=== PATIENT | female | born 1975 | race Caucasian/White ===

== ENCOUNTER 2016-10-25 22:41 | Emergency (ER) | payer SELFPAY ==
[~2016-10-25] VITALS: Ht 167.6 cm; Wt 45.4 kg
[2016-10-25 23:03] LABS: BASOPHILS % (AUTO) 0 % (0-10); EOSINOPHILS % (AUTO) 1 % (0-10); LYMPHOCYTES # (AUTO) 1.5 X 10^3 (1.0-4.0); LYMPHOCYTES % (AUTO) 24 % (12-44); MEAN CORPUSCULAR HEMOGLOBIN 31 PG (25-34); MEAN CORPUSCULAR HGB CONC 35 G/DL (32-36); MEAN CORPUSCULAR VOLUME 87 FL (80-99); MEAN PLATELET VOLUME 10.6 FL (7.4-10.4); MONOCYTES # (AUTO) 0.3 X 10^3 (0.0-1.0); MONOCYTES % (AUTO) 5 % (0-12); NEUTROPHILS # (AUTO) 4.3 X 10^3 (1.8-7.8); NEUTROPHILS % (AUTO) 71 % (42-75); PLATELET COUNT 226 10^3/uL (130-400); RED BLOOD COUNT 4.59 10^6/uL (4.35-5.85); RED CELL DISTRIBUTION WIDTH 12.3 % (10.0-14.5)
[2016-10-25 23:14] LABS: BILIRUBIN,URINE NEGATIVE (NEGATIVE); KETONES,URINE NEGATIVE (NEGATIVE); LEUKOCYTE ESTERASE ,URINE NEGATIVE (NEGATIVE); NITRITE,URINE NEGATIVE (NEGATIVE); PH,URINE 6 (5-9); PROTEIN,URINE NEGATIVE (NEGATIVE); SQUAMOUS EPITHELIAL CELL,UR RARE /HPF; UROBILINOGEN,URINE NORMAL (NORMAL)
[2016-10-25 23:23] LABS: ALANINE AMINOTRANSFERASE 9 U/L (0-55); ALBUMIN 4.1 G/DL (3.2-4.5); ALCOHOL 156 MG/DL (<10); ANION GAP 13 MMOL/L (5-14); ASPARTATE AMINO TRANSFERASE 19 U/L (5-34); BILIRUBIN,TOTAL 0.4 MG/DL (0.1-1.0); BLOOD UREA NITROGEN 11 MG/DL (7-18); BUN/CREATININE RATIO 16; CALCIUM 8.7 MG/DL (8.5-10.1); CARBON DIOXIDE 22 MMOL/L (21-32); CHLORIDE 106 MMOL/L (98-107); GFR ESTIMATED > 60; GLUCOSE 107 MG/DL (70-105); SODIUM 141 MMOL/L (135-145); TOTAL PROTEIN 7.1 G/DL (6.4-8.2)
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
[2016-10-26] MEDS ORDERED: ONDANSETRON 4 MG (ZOFRAN) ORAL DISSOLVE TAB PO ONE (01:45)
[2016-10-26 02:30] VITALS: BP 110/81
--- NOTE | 2016-10-26 08:07 | Diagnostic Imaging Report ---
PROCEDURE: CT head without contrast. TECHNIQUE: Multiple contiguous axial images were obtained through the brain without the use of intravenous contrast. INDICATION: Altered mental status . FINDINGS: There is some motion artifact which could obscure of particularly subtle abnormality. The scan was repeated. There is no intracranial hemorrhage, edema or mass effect. The brain parenchyma appears unremarkable. No hydrocephalus. The visualized portions of the orbits and paranasal sinuses appear unremarkable. IMPRESSION: No definite abnormality Dictated by: Dictated on workstation # [id number]
== END 2016-10-26 02:30 | disposition home or self-care (01) ==
LOC: EDBD → ER 22:42
DX: R41.3 Other amnesia (principal); R10.30 Lower abdominal pain, unspecified; F10.129 Alcohol abuse with intoxication, unspecified; Y90.6 Blood alcohol level of 120-199 mg/100 ml; S50.812A Abrasion of left forearm, initial encounter; Y04.8XXA Assault by other bodily force, initial encounter; Y92.009 Unspecified place in unspecified non-institutional (private) residence as the place of occurrence of the external cause; Y99.8 Other external cause status
CPT/HCPCS: 36415; 70450; 80053; 80306; 80320; 81000; 84703; 85025

== ENCOUNTER → 2016-10-25 | Outpatient (CLI) | payer OTHER ==
[~2016-10-25] MED LIST: Flexeril PO
--- NOTE | 2016-11-03 02:07 | Forensic Nursing Medical Dir ---
Forensic Nursing Note creative/art director chart review complete MELISSA JASSO MD Nov 03, 2016 02:07
== END ==
LOC: EDBD → FNS 23:40
PROVIDERS: ATTEND Emergency Medicine
DX: Z02.89 Encounter for other administrative examinations (principal)

== ENCOUNTER 2016-11-10 18:02 | Emergency (ER) | payer SELFPAY ==
[~2016-11-10] VITALS: Ht 170.2 cm; Wt 61.2 kg
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
[2016-11-10 18:36] LABS: BASOPHILS % (AUTO) 0 % (0-10); EOSINOPHILS # (AUTO) 0.1 10^3/uL (0.0-0.3); EOSINOPHILS % (AUTO) 1 % (0-10); LYMPHOCYTES # (AUTO) 1.9 X 10^3 (1.0-4.0); LYMPHOCYTES % (AUTO) 19 % (12-44); MEAN CORPUSCULAR HEMOGLOBIN 31 PG (25-34); MEAN CORPUSCULAR HGB CONC 35 G/DL (32-36); MEAN CORPUSCULAR VOLUME 88 FL (80-99); MEAN PLATELET VOLUME 10.1 FL (7.4-10.4); MONOCYTES # (AUTO) 0.6 X 10^3 (0.0-1.0); MONOCYTES % (AUTO) 6 % (0-12); NEUTROPHILS # (AUTO) 7.5 X 10^3 (1.8-7.8); NEUTROPHILS % (AUTO) 75 % (42-75); PLATELET COUNT 205 10^3/uL (130-400); RED BLOOD COUNT 4.75 10^6/uL (4.35-5.85); RED CELL DISTRIBUTION WIDTH 12.1 % (10.0-14.5)
[2016-11-10 18:53] LABS: ALANINE AMINOTRANSFERASE 17 U/L (0-55); ALBUMIN 4.3 G/DL (3.2-4.5); ANION GAP 14 MMOL/L (5-14); ASPARTATE AMINO TRANSFERASE 24 U/L (5-34); BILIRUBIN,TOTAL 0.4 MG/DL (0.1-1.0); BLOOD UREA NITROGEN 16 MG/DL (7-18); BUN/CREATININE RATIO 23; CARBON DIOXIDE 21 MMOL/L (21-32); CHLORIDE 104 MMOL/L (98-107); GFR ESTIMATED > 60; GLUCOSE 87 MG/DL (70-105); POTASSIUM 3.5 MMOL/L (3.6-5.0); SODIUM 139 MMOL/L (135-145)
[2016-11-10 18:54] LABS: ALCOHOL < 10 MG/DL (<10)
[2016-11-10] MEDS ORDERED: IOHEXOL 350 MG/ML 100 ML (OMNIPAQUE 350) VIAL IV ONE (19:00)
[2016-11-10] MEDS ORDERED: NS 100 ML (IVPB) BAG IV ONE (19:00)
[2016-11-10 19:13] LABS: BILIRUBIN,URINE NEGATIVE (NEGATIVE); KETONES,URINE NEGATIVE (NEGATIVE); LEUKOCYTE ESTERASE ,URINE NEGATIVE (NEGATIVE); NITRITE,URINE NEGATIVE (NEGATIVE); PH,URINE 5 (5-9); PROTEIN,URINE NEGATIVE (NEGATIVE); UROBILINOGEN,URINE NORMAL (NORMAL)
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
[2016-11-10] MEDS ORDERED: Flexeril PO (19:42)
[2016-11-10] MEDS ORDERED: ACETAMINOPHEN 500 MG TAB (TYLENOL) PO ONE (19:45)
[2016-11-10] MEDS ORDERED: CYCLOBENZAPRINE 10 MG (FLEXERIL) TAB PO SCH (19:45)
[2016-11-10 19:51] VITALS: BP 109/78
== END 2016-11-10 19:51 | disposition home or self-care (01) ==
LOC: EDUNIT# 18:02 → ER 18:03
DX: S39.012A Strain of muscle, fascia and tendon of lower back, initial encounter (principal); K57.30 Diverticulosis of large intestine without perforation or abscess without bleeding; J34.1 Cyst and mucocele of nose and nasal sinus; V28.1XXA Motorcycle passenger injured in noncollision transport accident in nontraffic accident, initial encounter; Y92.410 Unspecified street and highway as the place of occurrence of the external cause; Y99.8 Other external cause status
CPT/HCPCS: 36415; 70450; 71010; 72125; 72128; 72131; 72170; 74177; 80053; 80306; 80320; 81000; 85025; 99285

== ENCOUNTER 2017-01-19 11:52 | Emergency (ER) | payer SELFPAY ==
[~2017-01-19] VITALS: Ht 170.2 cm; Wt 61.2 kg
--- NOTE | 2017-01-19 12:09 | ED General ---
General Chief Complaint: General Problems/Pain Stated Complaint: MEDICAL CLEARANCE Source of Information: Patient, Caregiver Exam Limitations: No Limitations History of Present Illness Time Seen by Provider: 12:08 Initial Comments Brought to ER by [facility] with reports of needing medical clearance. Patient has been suicidal for many months and Rajinder orellana from [facility] visited with her today. He is arranged placement for her at [facility] in [facility]. However, prior to admissions there she needs medical clearance. Patient states that she is suicidal but does not voice a specific plan to me. Timing/Duration: Getting Worse, Intermittent Severity: Moderate Allergies and Home Medications Allergies Coded Allergies: ibuprofen (Verified Allergy, Mild, 11/10/16) Home Medications [Flexeril] , 5 MG PO TID PRN for PAIN, #20 Prescribed by: BETINA PARKER on 11/10/161941 Constitutional: see HPI EENTM: see HPI Respiratory: no symptoms reported Cardiovascular: no symptoms reported Genitourinary: no symptoms reported Musculoskeletal: no symptoms reported Skin: no symptoms reported Psychiatric/Neurological: See HPI, Anxiety, Depressed Hematologic/Lymphatic: No Symptoms Reported Past Bxyetpj-Jxmoem-Dwutmm Hx Patient Social History Recent Foreign Travel: No Contact w/Someone Who Travel: No Immunizations Up To Date Tetanus Booster (TDap): Less than 5yrs Surgeries HX Surgeries: Yes (hysterectomy) Physical Exam Vital Signs Vital Sign - Last 12Hours 01/19/17 12:04 Temp 97.2 Pulse 89 Resp 18 B/P (MAP) 112/96 Pulse Ox 99 O2 Delivery Room Air Capillary Refill : General Appearance: No Apparent Distress, WD/WN Eyes: Bilateral Eye EOMI, Bilateral Eye Normal Inspection, Bilateral Eye PERRL HEENT: PERRL/EOMI, TMs Normal Neck: Full Range of Motion, Normal Inspection Respiratory: No Accessory Muscle Use, No Respiratory Distress Cardiovascular: Regular Rate, Rhythm, Normal Peripheral Pulses Gastrointestinal: Normal Bowel Sounds, Non Tender, Soft Extremity: Normal Capillary Refill, Normal Inspection Neurologic/Psychiatric: Alert, Oriented x3, No Motor/Sensory Deficits, Other ( cooperative, pleasant) Skin: Normal Color, Warm/Dry Progress/Results/Core Measures Results/Orders Lab Results Laboratory Tests Test 01/19/17 12:10 Range/Units White Blood Count 7.3 4.3-11.0 10^3/uL Red Blood Count 4.76 4.35-5.85 10^6/uL Hemoglobin 14.6 11.5-16.0 G/DL Hematocrit 42 35-52 % Mean Corpuscular Volume 88 80-99 FL Mean Corpuscular Hemoglobin 31 25-34 PG Mean Corpuscular Hemoglobin Concent 35 32-36 G/DL Red Cell Distribution Width 11.9 10.0-14.5 % Platelet Count 239 130-400 10^3/uL Mean Platelet Volume 10.6 H 7.4-10.4 FL Neutrophils (%) (Auto) 69 42-75 % Lymphocytes (%) (Auto) 24 12-44 % Monocytes (%) (Auto) 7 0-12 % Eosinophils (%) (Auto) 0 0-10 % Basophils (%) (Auto) 0 0-10 % Neutrophils # (Auto) 5.0 1.8-7.8 X 10^3 Lymphocytes # (Auto) 1.8 1.0-4.0 X 10^3 Monocytes # (Auto) 0.5 0.0-1.0 X 10^3 Eosinophils # (Auto) 0.0 0.0-0.3 10^3/uL Basophils # (Auto) 0.0 0.0-0.1 10^3/uL Urine Color YELLOW Urine Clarity SLIGHTLY CLOUDY Urine pH 5 5-9 Urine Specific [place] 1.030 H 1.016-1.022 Urine Protein 2+ H NEGATIVE Urine Glucose (UA) NEGATIVE NEGATIVE Urine Ketones 1+ H NEGATIVE Urine Nitrite NEGATIVE NEGATIVE Urine Bilirubin NEGATIVE NEGATIVE Urine Urobilinogen NORMAL NORMAL MG/DL Urine Leukocyte Esterase 1+ H NEGATIVE Urine RBC (Auto) NEGATIVE NEGATIVE Urine RBC NONE /HPF Urine WBC 2-5 /HPF Urine Squamous Epithelial Cells 5-10 /HPF Urine Crystals PRESENT H /LPF Urine Amorphous Sediment RARE ALTAGRACIA URATES H /LPF Urine Bacteria TRACE /HPF Urine Casts NONE /LPF Urine Mucus SMALL H /LPF Urine Culture Indicated YES Sodium Level 140 135-145 MMOL/L Potassium Level 3.2 L 3.6-5.0 MMOL/L Chloride Level 105 98-107 MMOL/L Carbon Dioxide Level 26 21-32 MMOL/L Anion Gap 9 5-14 MMOL/L Blood Urea Nitrogen 22 H 7-18 MG/DL Creatinine 0.75 0.60-1.30 MG/DL Estimat Glomerular Filtration Rate > 60 BUN/Creatinine Ratio 29 Glucose Level 93 70-105 MG/DL Calcium Level 9.6 8.5-10.1 MG/DL Total Bilirubin 1.0 0.1-1.0 MG/DL Aspartate Amino Transf (AST/SGOT) 14 5-34 U/L Alanine Aminotransferase (ALT/SGPT) 9 0-55 U/L Alkaline Phosphatase 64 40-136 U/L Total Protein 7.3 6.4-8.2 G/DL Albumin 4.4 3.2-4.5 G/DL Thyroid Stimulating Hormone (TSH) 1.27 0.35-4.94 UIU/ML Salicylates Level < 5.0 L 5.0-20.0 MG/DL Urine Opiates Screen NEGATIVE NEGATIVE Urine Oxycodone Screen NEGATIVE NEGATIVE Urine Methadone Screen NEGATIVE NEGATIVE Urine Propoxyphene Screen NEGATIVE NEGATIVE Acetaminophen Level < 10 L 10-30 UG/ML Urine Barbiturates Screen NEGATIVE NEGATIVE Ur Tricyclic Antidepressants Screen NEGATIVE NEGATIVE Urine Phencyclidine Screen NEGATIVE NEGATIVE Urine Amphetamines Screen NEGATIVE NEGATIVE Urine Methamphetamines Screen NEGATIVE NEGATIVE Urine Benzodiazepines Screen NEGATIVE NEGATIVE Urine Cocaine Screen NEGATIVE NEGATIVE Urine Cannabinoids Screen NEGATIVE NEGATIVE Serum Alcohol < 10 <10 MG/DL My Orders Orders - BETINA PARKER APRN Cbc With Automated Diff (01/19/17 11:55) Comprehensive Metabolic Panel (01/19/17 11:55) Urine Bedside (01/19/17 11:55) Ua Culture If Indicated (01/19/17 11:55) Drug Screen Stat (Urine) (01/19/17 11:55) Thyroid Stimulating Hormone (01/19/17 11:55) Ekg Tracing (01/19/17 11:55) Alcohol (01/19/17 11:55) Salicylate (01/19/17 11:55) Acetaminophen (01/19/17 11:55) General/Regular (01/19/17 Lunch) Urine Culture (01/19/17 12:10) Vital Signs/I&O Vital Sign - Last 12Hours 01/19/17 12:04 Temp 97.2 Pulse 89 Resp 18 B/P (MAP) 112/96 Pulse Ox 99 O2 Delivery Room Air Departure Communication Progress Notes discharge pending to [facility] who will transport to [facility] Impression Impression: Primary Impression: General medical exam Additional Impression: suicidality Disposition: 65 XFER TO PSYCH HOSP/UNIT Condition: Stable Departure-Patient Inst. Decision time for Depature: 13:08 Referrals: [facility] (PCP/Family) Primary Care Physician Patient Instructions: NO INSTRUCTIONS GIVEN BETINA PARKER APRN January 19, 2017 12:09
[2017-01-19 12:22] LABS: BASOPHILS % (AUTO) 0 % (0-10); EOSINOPHILS % (AUTO) 0 % (0-10); LYMPHOCYTES # (AUTO) 1.8 X 10^3 (1.0-4.0); LYMPHOCYTES % (AUTO) 24 % (12-44); MEAN CORPUSCULAR HEMOGLOBIN 31 PG (25-34); MEAN CORPUSCULAR HGB CONC 35 G/DL (32-36); MEAN CORPUSCULAR VOLUME 88 FL (80-99); MEAN PLATELET VOLUME 10.6 FL (7.4-10.4); MONOCYTES # (AUTO) 0.5 X 10^3 (0.0-1.0); MONOCYTES % (AUTO) 7 % (0-12); NEUTROPHILS % (AUTO) 69 % (42-75); PLATELET COUNT 239 10^3/uL (130-400); RED BLOOD COUNT 4.76 10^6/uL (4.35-5.85); RED CELL DISTRIBUTION WIDTH 11.9 % (10.0-14.5); WHITE BLOOD COUNT 7.3 10^3/uL (4.3-11.0)
[2017-01-19 12:26] LABS: BILIRUBIN,URINE NEGATIVE (NEGATIVE); KETONES,URINE 1+ (NEGATIVE); LEUKOCYTE ESTERASE ,URINE 1+ (NEGATIVE); NITRITE,URINE NEGATIVE (NEGATIVE); PH,URINE 5 (5-9); PROTEIN,URINE 2+ (NEGATIVE); UROBILINOGEN,URINE NORMAL (NORMAL)
[2017-01-19 12:44] LABS: ALANINE AMINOTRANSFERASE 9 U/L (0-55); ALBUMIN 4.4 G/DL (3.2-4.5); ANION GAP 9 MMOL/L (5-14); ASPARTATE AMINO TRANSFERASE 14 U/L (5-34); BLOOD UREA NITROGEN 22 MG/DL (7-18); BUN/CREATININE RATIO 29; CALCIUM 9.6 MG/DL (8.5-10.1); CARBON DIOXIDE 26 MMOL/L (21-32); CHLORIDE 105 MMOL/L (98-107); CREATININE SERUM 0.75 MG/DL (0.60-1.30); GFR ESTIMATED > 60; GLUCOSE 93 MG/DL (70-105); POTASSIUM 3.2 MMOL/L (3.6-5.0); SALICYLATE < 5.0 MG/DL (5.0-20.0); SODIUM 140 MMOL/L (135-145); TOTAL PROTEIN 7.3 G/DL (6.4-8.2)
[2017-01-19 12:50] LABS: ACETAMINOPHEN < 10 UG/ML (10-30); ALCOHOL < 10 MG/DL (<10)
[2017-01-19 13:03] LABS: THYROID STIMULATING HORMONE 1.27 UIU/ML (0.35-4.94)
[2017-01-19 15:27] VITALS: BP 112/96
== END 2017-01-19 15:27 ==
LOC: EDUNIT# 11:52 → ER 11:53
DX: R45.851 Suicidal ideations (principal)
CPT/HCPCS: 36415; 80053; 80306; 80320; 80329; 81000; 84443; 85025; 87088

== ENCOUNTER 2017-01-27 19:23 | Emergency (ER) | payer SELFPAY ==
[~2017-01-27] VITALS: Ht 167.6 cm; Wt 49.9 kg
--- NOTE | 2017-01-27 19:33 | ED Psychosocial ---
General Chief Complaint: Overdose Stated Complaint: OVERDOSE Source: patient, EMS, RN notes reviewed Exam Limitations: no limitations History of Present Illness Time seen by provider: 19:24 Initial Comments Reportedly intentionally took an overdose of Xanax (50 tabs, unknown strength) and 6 sleeping pill (unknown name) tonight in an effort to hurt/kill self. After ingestion she walked to local police station and told them what she had done. Reportedly just got out of [place] (inpatient psych) on Tuesday. Timing/Duration: just prior to arrival Associated Symptoms: ingestion, suicidal ideation Allergies and Home Medications Allergies Coded Allergies: ibuprofen (Verified Allergy, Mild, 11/10/16) Home Medications Alprazolam 0.5 Mg Tablet, 0.5 MG PO, (Reported) Constitutional: see HPI Control/STD Prophylaxis: Other (s/p hyster) Psychiatric/Neurological: See HPI, Anxiety (hx of), Depressed All Other Systems Reviewed Negative Unless Noted: Yes (Negative excepted noted.) Past Rclobho-Bccxtj-Mqpfrz Hx Patient Social History Type Used: Cigarettes 2nd Hand Smoke Exposure: No Recent Hopitalizations: No Immunizations Up To Date Tetanus Booster (TDap): Less than 5yrs Seasonal Allergies Seasonal Allergies: No Surgeries HX Surgeries: Yes (hysterectomy) Integumentary Skin/Integumentary Disorders: Recent Skin Changes Physical Exam Vital Signs Vital Sign - Last 12Hours 01/27/17 19:27 Temp 99.3 Pulse 62 Resp 18 B/P (MAP) 122/94 Pulse Ox 95 O2 Delivery Room Air Capillary Refill : General Appearance: WD/WN, no apparent distress Respiratory: no respiratory distress Cardiovascular: regular rate, rhythm Neurologic/Psychiatric: no motor/sensory deficits, alert, oriented x 3, depressed affect Appearance/Memory: disheveled, impaired insight Behavior/Eye Contact: cooperative Thoughts/Hallucinations: no apparent hallucination Skin: warm/dry Progress/Results/Core Measures Results/Orders Lab Results Laboratory Tests Test 01/27/17 19:53 01/27/17 20:16 Range/Units Urine Color YELLOW Urine Clarity SLIGHTLY CLOUDY Urine pH 5 5-9 Urine Specific [place] 1.030 H 1.016-1.022 Urine Protein 2+ H NEGATIVE Urine Glucose (UA) NEGATIVE NEGATIVE Urine Ketones 3+ H NEGATIVE Urine Nitrite NEGATIVE NEGATIVE Urine Bilirubin NEGATIVE NEGATIVE Urine Urobilinogen 4 H NORMAL MG/DL Urine Leukocyte Esterase 1+ H NEGATIVE Urine RBC (Auto) NEGATIVE NEGATIVE Urine RBC NONE /HPF Urine WBC 5-10 H /HPF Urine Squamous Epithelial Cells >50 H /HPF Urine Crystals PRESENT H /LPF Urine Amorphous Sediment FEW ALTAGRACIA URATES H /LPF Urine Bacteria FEW H /HPF Urine Casts NONE /LPF Urine Mucus NEGATIVE /LPF Urine Culture Indicated YES Urine Opiates Screen NEGATIVE NEGATIVE Urine Oxycodone Screen NEGATIVE NEGATIVE Urine Methadone Screen NEGATIVE NEGATIVE Urine Propoxyphene Screen NEGATIVE NEGATIVE Urine Barbiturates Screen NEGATIVE NEGATIVE Ur Tricyclic Antidepressants Screen NEGATIVE NEGATIVE Urine Phencyclidine Screen NEGATIVE NEGATIVE Urine Amphetamines Screen NEGATIVE NEGATIVE Urine Methamphetamines Screen NEGATIVE NEGATIVE Urine Benzodiazepines Screen NEGATIVE NEGATIVE Urine Cocaine Screen NEGATIVE NEGATIVE Urine Cannabinoids Screen NEGATIVE NEGATIVE White Blood Count 11.4 H 4.3-11.0 10^3/uL Red Blood Count 4.16 L 4.35-5.85 10^6/uL Hemoglobin 12.7 11.5-16.0 G/DL Hematocrit 37 35-52 % Mean Corpuscular Volume 88 80-99 FL Mean Corpuscular Hemoglobin 31 25-34 PG Mean Corpuscular Hemoglobin Concent 35 32-36 G/DL Red Cell Distribution Width 11.7 10.0-14.5 % Platelet Count 197 130-400 10^3/uL Mean Platelet Volume 10.1 7.4-10.4 FL Neutrophils (%) (Auto) 85 H 42-75 % Lymphocytes (%) (Auto) 10 L 12-44 % Monocytes (%) (Auto) 5 0-12 % Eosinophils (%) (Auto) 0 0-10 % Basophils (%) (Auto) 0 0-10 % Neutrophils # (Auto) 9.7 H 1.8-7.8 X 10^3 Lymphocytes # (Auto) 1.1 1.0-4.0 X 10^3 Monocytes # (Auto) 0.5 0.0-1.0 X 10^3 Eosinophils # (Auto) 0.0 0.0-0.3 10^3/uL Basophils # (Auto) 0.0 0.0-0.1 10^3/uL Sodium Level 138 135-145 MMOL/L Potassium Level 3.1 L 3.6-5.0 MMOL/L Chloride Level 108 H 98-107 MMOL/L Carbon Dioxide Level 21 21-32 MMOL/L Anion Gap 9 5-14 MMOL/L Blood Urea Nitrogen 25 H 7-18 MG/DL Creatinine 0.70 0.60-1.30 MG/DL Estimat Glomerular Filtration Rate > 60 BUN/Creatinine Ratio 36 Glucose Level 130 H 70-105 MG/DL Calcium Level 8.2 L 8.5-10.1 MG/DL Magnesium Level 2.0 1.8-2.4 MG/DL Total Bilirubin 0.9 0.1-1.0 MG/DL Aspartate Amino Transf (AST/SGOT) 15 5-34 U/L Alanine Aminotransferase (ALT/SGPT) 9 0-55 U/L Alkaline Phosphatase 51 40-136 U/L Total Protein 6.0 L 6.4-8.2 G/DL Albumin 3.6 3.2-4.5 G/DL Thyroid Stimulating Hormone (TSH) 2.43 0.35-4.94 UIU/ML Salicylates Level 5.1 5.0-20.0 MG/DL Acetaminophen Level < 10 L 10-30 UG/ML Serum Alcohol < 10 <10 MG/DL My Orders Orders - GUILLERMO LANGFORD DO Acetaminophen (01/27/17 19:29) Alcohol (01/27/17 19:29) Cbc With Automated Diff (01/27/17 19:29) Comprehensive Metabolic Panel (01/27/17 19:29) Drug Screen Stat (Urine) (01/27/17 19:29) Magnesium (01/27/17 19:29) Salicylate (01/27/17 19:29) Thyroid Stimulating Hormone (01/27/17 19:29) Ua Culture If Indicated (01/27/17 19:29) Saline Lock/Iv-Start (01/27/17 19:29) Ekg Tracing (01/27/17 19:29) Urine Culture (01/27/17 19:53) Potassium Chloride (Tablet) (K Dur Table (01/27/17 21:15) Medications Given in ED Current Medications Medications Dose Ordered Sig/Magdi Route Start Time Stop Time Status Last Admin Dose Admin Potassium Chloride 40 meq ONCE ONCE PO 01/27/17 21:15 01/27/17 21:39 DC 01/27/17 22:54 40 MEQ Vital Signs/I&O Vital Sign - Last 12Hours 01/27/17 01/27/17 19:27 23:45 Temp 99.3 Pulse 62 48 Resp 18 20 B/P (MAP) 122/94 Pulse Ox 95 99 O2 Delivery Room Air Progress Note : Progress Note Drug screen and substance screen is entirely clean. ECG Initial ECG Impression Date: January 27, 2017 Initial ECG Impression Time: 19:53 Initial ECG Rate: 53 Initial ECG Rhythm: S.Daniel Initial ECG Comparisson: Unchanged Comment PVC; probable TIKI; consider RVH Departure Communication Progress Notes Was in the process of trying to find an inpatient facility for the patient when she told me she didn't want to hurt her self and she was ready to go home. was/is currently @ work. He is sending a friend to come and get the patient. Patient promises me is won't hurt her self if allowed to return home. Do think it is pretty obvious the patient is attention seeking by stating she took an overdose and her UDS is completely clean. Was also screened by [facility] and they are very familiar c/ her. If we didn't transfer her somewhere, they were comfortable following her up outpatient as well. Impression Impression: Primary Impression: Depression Additional Impression: Attention seeking behavior Disposition: 01 HOME, SELF-CARE Condition: Stable Departure-Patient Inst. Decision time for Depature: 23:29 Referrals: [facility] (PCP/Family) Primary Care Physician Patient Instructions: Depression, Adult (DC) Add. Discharge Instructions: All discharge instructions reviewed with patient and/or family. Voiced understanding. RECOMMEND YOUR FOLLOW UP WITH [facility] IN THE AM, 01/28. GUILLERMO LANGFORD DO January 27, 2017 19:32
[2017-01-27] MEDS ORDERED: ALPR0.5T PO (19:39)
[2017-01-27 20:10] LABS: BILIRUBIN,URINE NEGATIVE (NEGATIVE); KETONES,URINE 3+ (NEGATIVE); LEUKOCYTE ESTERASE ,URINE 1+ (NEGATIVE); NITRITE,URINE NEGATIVE (NEGATIVE); PH,URINE 5 (5-9); PROTEIN,URINE 2+ (NEGATIVE); UROBILINOGEN,URINE 4 MG/DL (NORMAL)
[2017-01-27 20:23] LABS: BASOPHILS % (AUTO) 0 % (0-10); EOSINOPHILS % (AUTO) 0 % (0-10); LYMPHOCYTES # (AUTO) 1.1 X 10^3 (1.0-4.0); LYMPHOCYTES % (AUTO) 10 % (12-44); MEAN CORPUSCULAR HEMOGLOBIN 31 PG (25-34); MEAN CORPUSCULAR HGB CONC 35 G/DL (32-36); MEAN CORPUSCULAR VOLUME 88 FL (80-99); MEAN PLATELET VOLUME 10.1 FL (7.4-10.4); MONOCYTES # (AUTO) 0.5 X 10^3 (0.0-1.0); MONOCYTES % (AUTO) 5 % (0-12); NEUTROPHILS # (AUTO) 9.7 X 10^3 (1.8-7.8); NEUTROPHILS % (AUTO) 85 % (42-75); PLATELET COUNT 197 10^3/uL (130-400); RED BLOOD COUNT 4.16 10^6/uL (4.35-5.85); RED CELL DISTRIBUTION WIDTH 11.7 % (10.0-14.5); WHITE BLOOD COUNT 11.4 10^3/uL (4.3-11.0)
[2017-01-27 20:26] LABS: SQUAMOUS EPITHELIAL CELL,UR >50 /HPF
[2017-01-27 20:42] LABS: ALANINE AMINOTRANSFERASE 9 U/L (0-55); ALBUMIN 3.6 G/DL (3.2-4.5); ANION GAP 9 MMOL/L (5-14); ASPARTATE AMINO TRANSFERASE 15 U/L (5-34); BILIRUBIN,TOTAL 0.9 MG/DL (0.1-1.0); BLOOD UREA NITROGEN 25 MG/DL (7-18); BUN/CREATININE RATIO 36; CALCIUM 8.2 MG/DL (8.5-10.1); CARBON DIOXIDE 21 MMOL/L (21-32); CHLORIDE 108 MMOL/L (98-107); GFR ESTIMATED > 60; GLUCOSE 130 MG/DL (70-105); POTASSIUM 3.1 MMOL/L (3.6-5.0); SALICYLATE 5.1 MG/DL (5.0-20.0); SODIUM 138 MMOL/L (135-145)
[2017-01-27 20:43] LABS: ACETAMINOPHEN < 10 UG/ML (10-30); ALCOHOL < 10 MG/DL (<10)
[2017-01-27 21:02] LABS: THYROID STIMULATING HORMONE 2.43 UIU/ML (0.35-4.94)
[2017-01-27] MEDS ORDERED: KCL 20 MEQ TAB (K-DUR) PO ONE (21:15)
[2017-01-27 23:45] VITALS: BP 115/83
== END 2017-01-27 23:45 | disposition home or self-care (01) ==
LOC: EDUNIT# 19:23 → ER 19:24
DX: F60.4 Histrionic personality disorder (principal); F33.9 Major depressive disorder, recurrent, unspecified
CPT/HCPCS: 36415; 80053; 80306; 80320; 80329; 81000; 83735; 84443; 85025; 87088; 93005